=== PATIENT | male | born 1955 | race Caucasian/White ===

== ENCOUNTER 2016-08-26 14:27 | Inpatient (IN) ==
[2016-08-26 16:50] LABS: MANUAL DIFF NEEDED? NO
[2016-08-26 16:52] LABS: BASO% 0.8 % (0.0-0.8); EOS# 0.26 X1000 (0.0-0.7); EOS% 2.9 % (0.0-10.0); HEMATOCRIT 50.4 % (42.0-52.0); HEMOGLOBIN 17.3 g/dL (14.0-18.0); IMM GRAN# 0.02 X1000 (0.0-0.04); IMM GRAN% 0.2 % (0.0-0.5); LYMPH# 2.15 X1000 (1.2-3.4); LYMPH% 24.3 % (20.5-51.1); MCH 30.8 PG (27-31); MCHC 34.3 g/dL (33-37); MCV 89.7 FL (81-99); MONO# 0.67 X1000 (0.11-0.59); MONO% 7.6 % (1.7-9.3); MPV 10.7 FL (7.4-10.4); NEUT% 64.2 % (42.2-75.2); PLT 245 X1000 (130-400); RBC 5.62 XMIL (4.7-6.1)
--- NOTE | 2016-08-26 17:00 | Diag Imaging Result Doc PS360 ---
EXAM: HEAD W/O CONTRAST HISTORY: Weakness TECHNIQUE: CT of the head with dose reduction densities clarity.) COMMENT: There are calcifications in the vertebral basilar and internal carotid arteries. There are patchy areas of poorly defined lucency in the white matter both hemispheres. This is particularly true of the area of the anterior limb of the internal capsule and caudate nucleus on the right. The calvarium appears to be intact. The visualized paranasal sinuses are clear. There is no evidence of bleed or mass effect. IMPRESSION: Chronic ischemic microvascular white matter change. No definite evidence of acute disease. Further evaluation with MRI may be desirable to exclude the possibility of a small acute infarct. Electronically signed by Hesham Booth 08/26/2016 4:57 PM
[2016-08-26 17:02] LABS: AGAP 14; ALKALINE PHOSPHATASE 138 U/L (32-122); BUN 13 mg/dL (8-22); CALCIUM 9.9 mg/dL (8.8-10.2); CHLORIDE 96 mmol/L (98-107); CK PROFILE 63 U/L (24-204); COSMO 272; GOT 17 U/L (10-34); GPT 11 U/L (10-44); POTASSIUM 3.9 mmol/L (3.5-5.1); SODIUM 136 mmol/L (136-145); TCO2 26 mmol/L (25-35); TOTAL PROTEIN 7.8 g/dL (6.3-8.3)
--- NOTE | 2016-08-26 17:21 | PROVIDER DOCUMENTATION ---
This chart was entered by Fouzia Mccurdy Scribe, acting as scribe for Brandy Rao CRNP. HPI-Neurological Disorder - General Chief Complaint: Dizziness Stated Complaint: DIZZINESS Time Seen by Provider: 08/26/16 16:31 Source: patient Allergies/Adverse Reactions: Patient Allergies Allergy/AdvReac Type Severity Reaction Status Date / Time No Known Allergies Allergy Verified 08/26/16 14:37 Home Medications: Home Medication List Medication Instructions Recorded Confirmed Last Taken Type NK [No Home Medications] 08/26/16 08/26/16 Unknown History - History of Present Illness-Neuro Nature of Presenting Problem: Pt is 60 y/o M presents to the ED with slurred speech, dizziness and a lean to the left. Pt's states symptoms started this am. Pt denies N/V/D. Headache Location: denies: frontal, temporal, occipital, parietal, global Severity: reports: mild Onset/Duration: reports: this morning Timing: reports: still present Context: reports: impaired speech (slurred speech), facial droop (L), other (L side lean) Character of Altered Mental Status: reports: N/A Any recent trauma/injury?: reports: none Character of Deficits: reports: new weakness (L side), impaired speech (slurred speech) New weakness or altered sensation location:: reports: LUE, LLE, left facial Gait Baseline: walks without assistance Associated Symptoms: reports: dizziness, slurred speech, weakness (L side), other (L side facial droop). denies: short of breath, headache, decreased ability to walk or stand, fainting, confusion, chest pain, neck/back pain, fatigue, fever/chills, insomnia, loss of consciousness, muscle spasms, nausea, numbness in legs/feet, paresthesia, diaphoretic, ringing in ears, seizures, sleepy, tingling in legs/feet, trouble walking, vomiting, vision changes Similar Symptoms Previously?: No Recently seen or treated by another doctor?: No Review of Systems - Adult - REVIEW OF SYSTEMS - ADULT Constitutional: reports: no symptoms reported Eyes: reports: no symptoms reported Ears, Nose, Mouth & Throat: reports: no symptoms reported Cardiovascular: reports: no symptoms reported Respiratory: reports: no symptoms reported Gastrointestinal: reports: no symptoms reported Genitourinary: reports: no symptoms reported Musculoskeletal: reports: no symptoms reported Integumentary: reports: no symptoms reported Neurological: reports: dizziness/vertigo (dizziness), slurred speech, other (L side weakness and L side facial droop). denies: headache/migraines Psychiatric: reports: no symptoms reported Endocrine: reports: no symptoms reported Hematologic/Lymphatic: reports: no symptoms reported Allergic/Immunologic: reports: no symptoms reported All Other Systems: Reviewed and Negative Past History - Adult - PAST MEDICAL HISTORY-ADULT Review of Records: reports: Nursing Assessment Review, Medications Reviewed, Social history reviewed & non-contributory. Major Childhood Illnesses: reports: denies history Cardiovascular: reports: denies history Respiratory: reports: denies history Gastrointestinal: reports: denies history Obstetrical/Gynecological: reports: denies history Genitourinary: reports: denies history Musculoskeletal: reports: denies history Neurological: reports: denies history Endocrine/Immune: reports: denies history Other Conditions: reports: denies history - PRIOR SURGERIES/PROCEDURES Surgical/Procedure History: reports: reviewed, not pertinent - IMMUNIZATION STATUS Childhood Immunizations: See Nurse Assessment Flu Vaccine: See Nurse Assessment - FAMILY HISTORY Family History: reviewed, not pertinent - SOCIAL HISTORY Smoking: cigarettes, less than 1 pack/day Provider spent 3-5 mins advising pt. on dangers of tobacco.: discussed smoking cessation Substance Use: denies Living Situation: family Physical Exam- Neurological - Physical Exam-Neuro Initial Vital Signs Reviewed: Yes General Appearance: appears well, alert, no apparent distress Eye Exam: bilateral eye: normal inspection, PERRL, EOMI HENMT: normocephalic/atraumatic, moist mucous membranes, normal ENT inspection, TMs normal, pharynx normal Head Injury: no evidence of injury Neck: non-tender, full range of motion, supple, normal inspection Respiratory: chest non-tender, lungs clear, normal breath sounds Cardiovascular: normal peripheral pulses, regular rate, rhythm Abdominal Exam: normal bowel sounds, non tender, soft Lymphatic: no adenopathy Extremity: normal range of motion, non-tender online content editor Exam: normal hearing, PERRL, facial droop (L) Motor/Sensory: pronator drift (L), weak motor strength LUE, weak motor strength LLE Neurologic: grossly normal Integumentary: normal color, normal turgor, warm/dry Psych/Mental Status: normal mood/affect, oriented x 3 Progress - PLAN OF CARE/RESULTS Progress/Plan/Lab Results: Vital Signs - 8 hr 08/26/16 14:33 Temperature 98.2 F Pulse Rate 94 H Respiratory Rate 18 Blood Pressure 127/71 O2 Sat by Pulse Oximetry 99 Laboratory Results - last 24 hr 08/26/16 08/26/16 08/26/16 14:45 14:45 14:45 WBC 8.85 RBC 5.62 Hgb 17.3 Hct 50.4 MCV 89.7 MCH 30.8 MCHC 34.3 RDW Std Deviation 13.7 Plt Count 245 MPV 10.7 H Immature Gran % (Auto) 0.2 Neut % (Auto) 64.2 Lymph % (Auto) 24.3 [place] % (Auto) 7.6 Eos % (Auto) 2.9 Baso % (Auto) 0.8 Immature Gran # (Auto) 0.02 Neut # (Auto) 5.68 Lymph # (Auto) 2.15 [place] # (Auto) 0.67 H Eos # (Auto) 0.26 Baso # (Auto) 0.07 Sodium 136 Potassium 3.9 Chloride 96 L Carbon Dioxide 26 Anion Gap 14 BUN 13 Creatinine 1.0 Estimated GFR/1.73 m2 > 60 BUN/Creatinine Ratio 13 Glucose 104 Calculated Osmolality 272 Calcium 9.9 Total Bilirubin 0.50 AST 17 ALT 11 Alkaline Phosphatase 138 H Creatine Kinase 63 Troponin T < 0.010 Total Protein 7.8 Albumin 5.0 Globulin 3.0 Albumin/Globulin Ratio 2.0 Urine Source Urine Color Urine Clarity Urine pH Ur Specific [place] Urine Protein Urine Ketones Urine Blood Urine Nitrite Urine Bilirubin Urine Urobilinogen Urine Microscopic RBC Urine WBC Ur Epithelial Cells Urine Glucose 08/26/16 17:30 WBC RBC Hgb Hct MCV MCH MCHC RDW Std Deviation Plt Count MPV Immature Gran % (Auto) Neut % (Auto) Lymph % (Auto) [place] % (Auto) Eos % (Auto) Baso % (Auto) Immature Gran # (Auto) Neut # (Auto) Lymph # (Auto) [place] # (Auto) Eos # (Auto) Baso # (Auto) Sodium Potassium Chloride Carbon Dioxide Anion Gap BUN Creatinine Estimated GFR/1.73 m2 BUN/Creatinine Ratio Glucose Calculated Osmolality Calcium Total Bilirubin AST ALT Alkaline Phosphatase Creatine Kinase Troponin T Total Protein Albumin Globulin Albumin/Globulin Ratio Urine Source CLEAN CATCH Urine Color YELLOW Urine Clarity CLEAR Urine pH 5.0 Ur Specific [place] 1.015 Urine Protein NEGATIVE Urine Ketones NEGATIVE Urine Blood 1+ A Urine Nitrite NEGATIVE Urine Bilirubin NEGATIVE Urine Urobilinogen NORMAL Urine Microscopic RBC <10 Urine WBC NEGATIVE Ur Epithelial Cells <10 Urine Glucose NEGATIVE Orders Category Date Time Status Saline Loc NOW Care 08/26/16 16:32 Active HEAD W/O CONTRAST [CT] Stat Exams 08/26/16 16:32 Completed CBC WITH ELECTRONIC DIFF [HEME] Stat Lab 08/26/16 14:45 Completed CK PROFILE [SP CHEM] Stat Lab 08/26/16 14:45 Completed COMPREHENSIVE METABOLIC PANEL [CHEM] Stat Lab 08/26/16 14:45 Completed TROPONIN T Stat Lab 08/26/16 14:[address] [URINALYSIS] Stat Lab 08/26/16 17:30 Completed URINE MICROSCOPIC [URINALYSIS] Stat Lab 08/26/16 17:30 Completed EKG [EKG] Stat Ther 08/26/16 16:32 Draft Discussed results and plan of care with patient. Patient agrees with plan and verbalizes understanding. Result Diagrams: 08/26/16 14:45 08/26/16 14:45 - EKG 1 Time of EKG reading by physician:: 17:25 EKG Read and Signed by:: Eliazar Lima EKG Interpretation (*Must complete 3 of following elements*): Normal Rate: 74 Rhythm: normal sinus rhythm Comments: normal ECG - CT/MRI 1 CT Study: Head Impression: Abnormal (no definite evidence of acute disease. Further evaluation with MRI may be desirable to exclude the possiblity of a small infarct. ( [place])) CT Results: chronic ischemic microvascular white matter change. - CONSULTS/PCP/HOSPITALIST Notification #1 *Consult/PCP/Hospitalist*: Dr. Hernández Time Discussed: 18:24 Reason/Comments: Admission Consult Disposition: Admit Departure - Departure Time of Disposition Decision: 18:25 DIAGNOSIS: TIA (transient ischemic attack) Qualifiers: Transient cerebral ischemia type: unspecified Qualified Code(s): G45.9 - Transient cerebral ischemic attack, unspecified Disposition: ADMITTED INPATIENT 09 Certified Medical Emergency: Emergent Condition: Stable Referrals and Follow-Ups: None,PCP [Primary Care Provider] - - Critical Care Note This patient required my direct & personal management of CC.: No Attestation - Physician/ QUINN Attestation Patient care was provided by Advanced Practice Provider:: Yes Advanced Practice Provider:: Brandy Rao Advanced Practice Provider documentation review:: The Mid-level provider documentation, treatment plan and medical decision making was reviewed by the physician who agrees with all treatment and medical decision making by the MLP. - NIH Stroke Scale Level of Consciousness: 0-Alert LOC Questions (ask month and age): 0-Answers Both Correctly LOC Commands (ask to open & close eyes;make a fist, let go): 0-Obeys Both Correctly Best Gaze (horizontal eye movement): 0-Normal Visual (use finger movement, counting or visual threat): 0-No Visual Loss Facial Palsy (show teeth or raise eyebrows & close eyes tght: 1-Minor Paralysis (Left sided facial droop) Motor Function-left arm: 0-Normal Motor Function-right arm: 0-Normal Motor Function-left le-Normal Motor Function-right le-Normal Limb Ataxia(tcyzoj-[id number]-cmbema, or heel to gonzalez): 0-No Ataxia Sensory(pin prick to face,arms,trunk,legs-compare side/side): 0-No Ataxia Best Language(name item/read sentence.Ex-Down to Earth): 0-No Aphasia Dysarthria(Pt read words or say words Ex.Mama,Tip-Top,Thanks: 0-Normal Articulation Extinction and Inattention: 0-Normal Modified George Score Criteria: 1-no significant disability despite symptoms This chart was documented by the indicated scribe, (Fouzia Mccurdy Scribe) and accurately reflects the services I performed and decisions made by me, Brandy Rao CRNP, as attested by the provider's signature.
[2016-08-26 17:40] LABS: URINE SOURCE CLEAN CATCH
[2016-08-26 17:49] LABS: BILIRUBIN URINE NEGATIVE (NEGATIVE); BLOOD URINE 1+ (NEGATIVE); CLARITY CLEAR (CLEAR); COLOR YELLOW; GLUCOSE URINE NEGATIVE (NEGATIVE); LEUKOCYTES URINE NEGATIVE (NEGATIVE); NITRITE URINE NEGATIVE (NEGATIVE); PROTEIN URINE NEGATIVE (NEGATIVE); SP GRAVITY URINE 1.015; URINE MICROSCOPIC NEEDED? YES; UROBILINOGEN URINE NORMAL
--- NOTE | 2016-08-26 17:54 | EKG Report ---
Test Performed on : 08/26/2016 5:25:44 PM Test Reason : WEAKNESS Blood Pressure : / mmHG Vent. Rate : 074 BPM Atrial Rate : 074 BPM P-R Int : 158 ms QRS Dur : 088 ms QT Int : 386 ms P-R-T Axes : 071 027 079 degrees QTc Int : 428 ms Normal sinus rhythm. Normal ECG No previous ECGs available Unconfirmed Result
[2016-08-26 18:20] LABS: URINE EPITHELIAL CELLS <10 /HPF (<10); URINE RBC <10 /HPF (<10)
[2016-08-26] MEDS ORDERED: NS 1,000 ML IV ONE (18:39)
[2016-08-26] MEDS ORDERED: ZOFRAN IV PRN (18:39)
[2016-08-26] MEDS ORDERED: NICODERM PATCH TD ONE (18:42)
--- NOTE | 2016-08-26 19:02 | Diag Imaging Result Doc PS360 ---
EXAM: CHEST-PORTABLE HISTORY: SOB TECHNIQUE: AP portable at 1843 COMMENT: There is COPD particularly in the right upper lobe. There is pleural scarring in the left costophrenic angle. There are no previous studies. The heart size and pulmonary vascularity appear to be within normal limits. IMPRESSION: COPD. Electronically signed by Hesham Booth 08/26/2016 7:00 PM
[2016-08-26] MEDS ORDERED: PREVNAR 13 IM ONE (21:43)
[2016-08-26] MEDS ORDERED: PNEUMOVAX 23 IM ONE (21:45)
[2016-08-27] MEDS ORDERED: LIPITOR PO SCH (09:00)
[2016-08-27] MEDS ORDERED: ASPIRIN PO SCH (09:00)
--- NOTE | 2016-08-27 10:47 | Diag Imaging Result Doc PS360 ---
EXAM: MRI BRAIN W W/O CONTRAST HISTORY: Left facial droop TECHNIQUE: Axial, sagittal, and coronal images obtained in multiple sequences. These were followed by postcontrast axial and coronal images. COMPARISON: None. FINDINGS: There is evidence of a small recent right parietal infarct adjacent to the lateral ventricle measuring 1.2 x 1.9 cm. There are also chronic microvascular ischemic changes. No mass or midline shift. No enhancing lesions on the postcontrast images. No hydrocephalus. No epidural or subdural fluid collection. No sinus opacification. IMPRESSION: Small recent right parietal infarct. Electronically signed by Giorgi Garrett 08/27/2016 10:45 AM
--- NOTE | 2016-08-27 13:42 | Extremity Venous Study ---
EXAM: Carotid Ultrasound HISTORY: TIA vs. CVA TECHNIQUE: Bilateral carotid Doppler ultrasound COMPARISON: None. FINDINGS: Right: There is normal flow in the right common carotid artery. There is a small to moderate amount of plaque in the bulb. Peak systolic velocity in the right internal carotid artery is 76 cm/s. Mild intimal thickening in the common carotid artery. Left: There is normal flow in the common carotid artery. Mild intimal thickening. A [id number] amount of plaque is present in the bulb. Peak systolic velocity in the internal carotid artery is 93 cm/s. IMPRESSION: Mild stenosis within each internal carotid artery bulb of less than 40%. Electronically signed by Giorgi Garrett 08/27/2016 1:40 PM
--- NOTE | 2016-08-27 13:52 | HISTORY AND PHYSICAL ---
PRIMARY CARE PHYSICIAN: None. CHIEF COMPLAINT: Of slurred speech, dizziness, leaning to the left when walking. HISTORY OF PRESENTING ILLNESS: This is a 60-year-old male, who presents to [facility] ER with complaints of some slurred speech, dizziness leaning to the left when he walks. States that these began on the morning of arrival, but after speaking with his it is felt that these symptoms began possibly as early as morning. He was noted to have some left facial drooping and left-sided weakness that she had noticed over the past couple of days that progressively worsened. Workup in the ER showed a head CT that showed chronic ischemic microvascular white matter changes. No evidence of an acute disease, but further evaluation with MRI would be desirable to exclude the possibility of a small acute infarct. We did obtain that brain MRI this a.m. and it showed a small recent right parietal infarct. He was admitted for further evaluation and treatment. PAST MEDICAL HISTORY: None. PAST SURGICAL HISTORY: None. FAMILY HISTORY: Noncontributory. SOCIAL HISTORY: Currently lives with family. Is a 2-1/2 pack a day smoker and has been smoking since he was 17 years old. No alcohol or illicit drug use. ALLERGIES: He did not have any known drug allergies. HOME MEDICATIONS: He does not take any medications on a routine basis. LABORATORY DATA: Showed a white blood cell count of 8.85, hemoglobin 17.3, hematocrit 50.4, platelets 254,000. Sodium 136, potassium 3.9, chloride 96, CO2 26, BUN of 13, creatinine 1, glucose 104, cardiac enzyme was negative. Urinalysis is negative. EKG on arrival showed normal sinus rhythm at 74. Head CT showed chronic ischemic microvascular white matter changes. No definite evidence of an acute disease. Further evaluation with MRI may be desirable to exclude the possibility of a small acute infarct. Chest x-ray showed COPD. Brain MRI showed a small recent right parietal infarct. REVIEW OF SYSTEMS: He was positive for dizziness, slurred speech, left-sided facial droop, left- sided upper and lower weakness, leaning to the left when walking. Denied any chest pain, coughing, shortness of breath, abdominal pain, constipation, diarrhea, or burning or hurting with urination. PHYSICAL EXAMINATION: VITAL SIGNS: On arrival, he had a temperature of 98.2 degrees, pulse 94, respirations 18, blood pressure was 127/71. GENERAL: This is a 60-year-old male, who is lying in the bed, answers questions appropriately. HEENT: Normocephalic and atraumatic. Facial drooping is mildly noted to the left but is much improved since arriving. Speech is clear at this time. Pupils are equal, round, reactive to light. The extraocular movements are intact. Oropharynx and nares are clear. NECK: Supple. LUNGS: Clear to auscultation bilaterally with equal lung expansion and chest wall movement. HEART: With regular rate and rhythm. No murmurs, rubs, or gallops. ABDOMEN: Soft, nontender, nondistended. Bowel sounds are present x 4 quadrants. EXTREMITIES: No clubbing, cyanosis, or edema. NEUROLOGICAL: The cranial nerves 2-12 are grossly intact. He does still have some weakness on the left side but that is improved. There is still some mild left-sided facial drooping but speech is clear and no difficulty swallowing. ASSESSMENT: 1. Acute cerebrovascular accident. 2. History of chronic obstructive pulmonary disease. 3. Tobacco abuse. PLAN: He was admitted to the medical unit at [place], placed on Uro-checks. O2 per protocol, telemetry, healthy heart diet. We will check a carotid ultrasound and an echocardiogram today. Could place him on aspirin 81 mg p.o. daily, Lipitor 40 mg p.o. daily. Discussed smoking cessation at length with this patient. Dictated by NISSA Monique for Smith Hernández MD cc: NISSA Monique MD
[2016-08-27 15:56] VITALS: BP 144/76
--- NOTE | 2016-08-28 09:11 | ECHO REPORT ---
ORDER DATE: 08/27/2016 INTERPRETING PHYSICIAN: Dr. Fleming. CLINICAL INDICATIONS: A 60-year-old male with TIA versus stroke. M-MODE MEASUREMENTS: Right ventricle: 1.7 cm. Left ventricle end diastole: 4.2 cm. Left ventricle end systole: 3.1 cm. Posterior wall: 0.7 cm. Interventricular septum: 0.7 cm. Left atrium: 3.0 cm. Aortic root: 3.3 cm. SUMMARY OF 2-DIMENSIONAL IMAGIN. The left ventricular function is normal, ejection fraction is 62%. 2. The right ventricle is normal. 3. The mitral valve looks normal, color flow mapping unremarkable. Pulsed wave Doppler of mitral inflow shows reversal of the E and the A wave. The tissue Doppler of septal and lateral mitral annulus averages 9 cm. 4. There is no diastolic dysfunction. 5. The aortic valve looks normal. Color flow mapping shows a mild degree of sclerosis. The color flow mapping is unremarkable. 6. The tricuspid valve looks normal. Color flow mapping indicates a mild degree of regurgitation. Inferior vena cava is not dilated. Pulmonary pressure is estimated at 25 mmHg. 7. The pulmonic valve looks normal. Color flow mapping unremarkable. 8. There is no pericardial effusion, masses, nor thrombus. CONCLUSIONS: In summary, this study shows: 1. Normal left ventricular systolic function. 2. No pulmonary hypertension. 3. No definite diastolic dysfunction. 4. No evidence of any significant valvular abnormality. Clinical correlation recommended. cc: MD Parisa Corbin CRNP
--- NOTE | 2016-08-28 11:47 | DISCHARGE SUMMARY ---
ADMISSION DATE: 08/26/2016 DISCHARGE DATE: 08/27/2016 PRIMARY CARE PHYSICIAN: None. ADMISSION DIAGNOSES: 1. Cerebrovascular accident. 2. History of chronic obstructive pulmonary disease. 3. Tobacco abuse. DISCHARGE DIAGNOSES: 1. Cerebrovascular accident. 2. History of chronic obstructive pulmonary disease. 3. Tobacco abuse. SUMMARY OF FINDINGS: This is a 60-year-old male, who presented to the ER with slurred speech, left-sided facial drooping, left upper and lower extremity weakness and leaning to the left when walking. Head CT showed chronic ischemic microvascular white matter changes but no definite evidence of an acute disease. Further evaluation with MRI may be desirable to exclude the possibility of a small acute infarct. MRI of the brain was obtained this a.m. that showed a small recent right parietal infarct. He still was noted to have some mild left-sided drooping. Speech is clear now. He is feeling much better. He was started on aspirin 81 mg daily and pravastatin 40 mg p.o. daily. We did a carotid ultrasound that showed mild stenosis within each internal carotid artery involved with less than 40%. An echocardiogram was completed but those results are pending. We discussed smoking cessation at length with this patient as he is a 2-1/2 pack a day smoker. His chest x-ray showed COPD. He is encouraged to obtain a primary care physician. We are referring him at this time to NISSA Fraire at [facility]. We are giving him information on heart healthy diet with low salt, and it is felt that he can safely be discharged home today. DISCHARGE MEDICATIONS: 1. He has a prescription for aspirin 81 mg 1 p.o. daily #30 with 2 refills. 2. Atorvastatin 40 mg p.o. daily #30 with 2 refills. FOLLOW UP: He will need to follow up with NISSA Fraire in the next 1-2 weeks and call in the morning to schedule an appointment and he verbalizes understanding. Dictated by NISSA Monique for Smith Hernández MD cc: NISSA Monique MD Anna M. Dumas, CRNP
== END 2016-08-27 16:56 | disposition home or self-care (01) ==
LOC: P.ED 14:27 → P.MEDSURG 18:48
PROVIDERS: ATTEND Family Medicine